=== PATIENT | male | born 1940 | race Caucasian/White ===

== ENCOUNTER 2017-11-01 10:52 | Day surgery (SDC) | payer MEDICARE ==
[2017-10-26 14:01] VITALS: BP 140/79
[~2017-11-01] VITALS: Ht 180.3 cm; Wt 85.1 kg
[~2017-11-01 10:52] MED LIST: ASPI-496 PO; FENO160T PO; LISI40TA PO; METF500T5 PO; METO-93 PO; OMEG1CAP6 PO
[2017-11-01] MEDS ORDERED: LACTATED RINGERS 1,000 ML IV SCH (11:13)
[2017-11-01] MEDS ORDERED: CHLORHEXIDINE 15 ML UDC MM ONE (12:30)
[2017-11-01] MEDS ORDERED: ACETAMINOPHEN 325 MG TABLET PO PRN (14:00)
[2017-11-01] MEDS ORDERED: FENTANYL PF 100 MCG/2ML IV PRN (14:00)
[2017-11-01] MEDS ORDERED: ONDANSETRON ODT 8 MG PO PRN (14:00)
[2017-11-01] MEDS ORDERED: ONDANSETRON 2MG/ML, 2ML IV PRN (14:00)
[2017-11-01] MEDS ORDERED: OXYcodone 5 MG/5 ML ORAL.SOL UDC PO PRN (14:00)
[2017-11-01] MEDS ORDERED: PROPOFOL 10 MG/ML, 20ML ONE (15:20)
== END 2017-11-01 16:50 ==
LOC: OUT 10:52
PROVIDERS: ATTEND Internal Medicine Gastroenterology
DX: C15.9 Malignant neoplasm of esophagus, unspecified (principal); E11.9 Type 2 diabetes mellitus without complications; E78.00 Pure hypercholesterolemia, unspecified; I10 Essential (primary) hypertension; I25.10 Atherosclerotic heart disease of native coronary artery without angina pectoris; E78.2 Mixed hyperlipidemia; J44.9 Chronic obstructive pulmonary disease, unspecified; F17.211 Nicotine dependence, cigarettes, in remission; Z98.890 Other specified postprocedural states; Z86.010 Personal history of colon polyps; Z95.1 Presence of aortocoronary bypass graft; Z72.89 Other problems related to lifestyle; Z87.891 Personal history of nicotine dependence; Z79.82 Long term (current) use of aspirin
CPT/HCPCS: 43238; 82962; 88172; 88173; 88305; J2704; J7120

== ENCOUNTER → 2018-02-25 | Outpatient (CLI) | payer MEDICARE ==
[~2018-02-25] MED LIST changes: +METF500T17 PO; -METF500T5 PO; +OMNIPAQUE 350 MG/ML, 100ML BOTTLE ONE
== END | disposition home or self-care (01) ==
LOC: CFH 09:08
PROVIDERS: ATTEND Internal Medicine Hematology & Oncology
DX: R59.0 Localized enlarged lymph nodes (principal); N28.1 Cyst of kidney, acquired; K57.30 Diverticulosis of large intestine without perforation or abscess without bleeding; C15.5 Malignant neoplasm of lower third of esophagus; Z92.21 Personal history of antineoplastic chemotherapy
CPT/HCPCS: 71260; 74177; Q9967

== ENCOUNTER → 2018-06-19 | Outpatient (CLI) | payer MEDICARE | END | disposition home or self-care (01) | LOC: CVU 09:28 | PROVIDERS: ATTEND Family Medicine | DX: C15.5 Malignant neoplasm of lower third of esophagus (principal); J43.2 Centrilobular emphysema; I77.811 Abdominal aortic ectasia; I77.4 Celiac artery compression syndrome; I72.3 Aneurysm of iliac artery; I70.8 Atherosclerosis of other arteries; I65.23 Occlusion and stenosis of bilateral carotid arteries; N28.1 Cyst of kidney, acquired; K57.30 Diverticulosis of large intestine without perforation or abscess without bleeding; E78.2 Mixed hyperlipidemia; E11.9 Type 2 diabetes mellitus without complications; I25.10 Atherosclerotic heart disease of native coronary artery without angina pectoris; I10 Essential (primary) hypertension; Z87.891 Personal history of nicotine dependence; Z95.1 Presence of aortocoronary bypass graft | CPT/HCPCS: 71260; 74177; 93880; 93978; Q9967 ==

== ENCOUNTER → 2019-08-05 | Outpatient (CLI) | payer MEDICARE ==
[~2019-08-05] MED LIST changes: -OMNIPAQUE 350 MG/ML, 100ML BOTTLE ONE
== END | disposition home or self-care (01) ==
LOC: CFH 09:58
PROVIDERS: ATTEND Nurse Practitioner Family
DX: R59.1 Generalized enlarged lymph nodes (principal); J43.9 Emphysema, unspecified; J84.10 Pulmonary fibrosis, unspecified
CPT/HCPCS: 71250

== ENCOUNTER → 2019-08-21 | Outpatient (CLI) | payer MEDICARE | END | disposition home or self-care (01) | LOC: PETCFH 08:30 | PROVIDERS: ATTEND Internal Medicine Hematology & Oncology | DX: C15.5 Malignant neoplasm of lower third of esophagus (principal); R91.1 Solitary pulmonary nodule | CPT/HCPCS: 78815; A9552 ==

== ENCOUNTER 2019-09-02 15:10 | Outpatient (CLI) | payer MEDICARE ==
[~2019-09-02 15:10] MED LIST changes: +ALBU90AE INH; +DIPH-423 PO; +FLUT9.9S NS; +MULT-257 PO; +ROSU20TA2 PO
== END 2019-09-02 23:59 | disposition home or self-care (01) ==
LOC: CFH 15:10
PROVIDERS: ATTEND Internal Medicine
DX: J43.2 Centrilobular emphysema (principal); R91.1 Solitary pulmonary nodule
CPT/HCPCS: 71250

== ENCOUNTER 2019-09-03 12:08 | Day surgery (SDC) | payer MEDICARE ==
[2019-09-02 11:26] LABS: ALANINE AMINOTRANSFERASE 43 U/L (12-78); ALBUMIN 3.3 g/dL (3.4-5.0); ANION GAP 7 mmol/L (5-15); CALCIUM 8.9 mg/dL (8.5-10.1); CHLORIDE 110 mmol/L (98-107); CREATININE 1.05 mg/dL (0.7-1.3)
[2019-09-02 11:28] LABS: ALKALINE PHOSPHATASE 82 U/L (45-117); BILIRUBIN,TOTAL 0.4 mg/dL (0.2-1.0); TOTAL PROTEIN 7.7 g/dL (6.4-8.2)
[~2019-09-03] VITALS: Ht 181.6 cm; Wt 83.1 kg
[~2019-09-03 12:08] MED LIST changes: +EPINEPHRINE SYRINGE 0.1 MG/ML, 10ML ONE
[2019-09-03] MEDS ORDERED: LACTATED RINGERS 1,000 ML IV SCH (12:33)
[2019-09-03 12:35] VITALS: BP 138/83
[2019-09-03] MEDS ORDERED: CHLORHEXIDINE 15 ML UDC ONE (12:42)
[2019-09-03] MEDS ORDERED: CHLORHEXIDINE 15 ML UDC MM ONE (13:00)
[2019-09-03] MEDS ORDERED: FENTANYL PF 100 MCG/2ML ONE (13:30)
[2019-09-03] MEDS ORDERED: SUCCINYLCHOLINE 20 MG/ML, 10ML ONE (13:32)
[2019-09-03] MEDS ORDERED: LIDOCAINE-MPF 2% ,5ML ONE (13:32)
[2019-09-03] MEDS ORDERED: ROCURONIUM 10MG/ML,5ML ONE (13:37)
[2019-09-03] MEDS ORDERED: PHENYLEPHRINE 10 MG/ML ONE (14:25)
[2019-09-03] MEDS ORDERED: EPHEDRINE 50 MG/ML, 1ML ONE (14:25)
[2019-09-03] MEDS ORDERED: SUGAMMADEX 200 MG/2 ML IVPush ONE (15:56)
== END 2019-09-03 17:40 | disposition home or self-care (01) ==
LOC: OUT 12:08
PROVIDERS: ATTEND Internal Medicine
DX: R91.8 Other nonspecific abnormal finding of lung field (principal); Z11.59 Encounter for screening for other viral diseases; R91.1 Solitary pulmonary nodule; I25.10 Atherosclerotic heart disease of native coronary artery without angina pectoris; E07.9 Disorder of thyroid, unspecified; R09.02 Hypoxemia; Z79.82 Long term (current) use of aspirin; Z79.84 Long term (current) use of oral hypoglycemic drugs; Z79.899 Other long term (current) drug therapy; Z85.01 Personal history of malignant neoplasm of esophagus; Z92.21 Personal history of antineoplastic chemotherapy; Z95.1 Presence of aortocoronary bypass graft
CPT/HCPCS: 31624; 31627; 31628; 31632; 36415; 71045; 80053; 82962; 88112; 88172; 88173; 88177; 88305; 93005; J0330; J2370; J3010; J7120; U0001; 31623; 31625; 76000

== ENCOUNTER → 2019-11-27 | Outpatient (CLI) | payer MEDICARE ==
[~2019-11-27] MED LIST changes: -EPINEPHRINE SYRINGE 0.1 MG/ML, 10ML ONE
== END | disposition home or self-care (01) ==
LOC: CFH 10:17
PROVIDERS: ATTEND Internal Medicine
DX: J43.2 Centrilobular emphysema (principal); R91.1 Solitary pulmonary nodule
CPT/HCPCS: 71250

== ENCOUNTER 2019-12-29 09:27 | Outpatient (CLI) | payer MEDICARE | END 2019-12-29 23:59 | disposition home or self-care (01) | LOC: RAD 09:27 | PROVIDERS: ATTEND Internal Medicine | DX: J92.9 Pleural plaque without asbestos (principal); J43.9 Emphysema, unspecified; J47.9 Bronchiectasis, uncomplicated; J98.4 Other disorders of lung | CPT/HCPCS: 36415; 71250; 80053; 87635; 93005 ==

== ENCOUNTER 2020-01-02 07:54 | Day surgery (SDC) | payer MEDICARE ==
[~2020-01-02] VITALS: Ht 180.3 cm; Wt 82.4 kg
[2020-01-02] MEDS ORDERED: CHLORHEXIDINE 15 ML UDC MM STA (08:31)
[2020-01-02] MEDS ORDERED: LACTATED RINGERS 1,000 ML IV ONE (08:31)
[2020-01-02 08:32] VITALS: BP 116/76
[2020-01-02] MEDS ORDERED: FENTANYL PF 100 MCG/2ML IV PRN (09:30)
[2020-01-02] MEDS ORDERED: PROMETHAZINE 25 MG/ML, 1ML IVPush PRN (09:30)
[2020-01-02] MEDS ORDERED: LABETALOL 5MG/ML, 20ML IV PRN (09:30)
[2020-01-02] MEDS ORDERED: hydrALAzine 20 MG/ML, 1ML IV PRN (09:30)
[2020-01-02] MEDS ORDERED: ONDANSETRON 2MG/ML, 2ML IVPush PRN (09:30)
[2020-01-02] MEDS ORDERED: HYDROcodone/APAP 7.5-325MG/15ML UDC PO PRN (09:30)
[2020-01-02] MEDS ORDERED: morphine SULFATE 10 MG/ML, 1ML IVPush PRN (09:30)
[2020-01-02] MEDS ORDERED: FENTANYL PF 250 MCG/5ML ONE (09:52)
[2020-01-02] MEDS ORDERED: DEXAMETHASONE 4 MG/ML, 1ML ONE (10:40)
[2020-01-02] MEDS ORDERED: ONDANSETRON 2MG/ML, 2ML ONE (10:44)
[2020-01-02] MEDS ORDERED: SUCCINYLCHOLINE 20 MG/ML, 10ML ONE (10:44)
[2020-01-02] MEDS ORDERED: ROCURONIUM 10 MG/ML,10ML ONE (10:44)
[2020-01-02] MEDS ORDERED: PROPOFOL 10 MG/ML, 20ML ONE (10:44)
[2020-01-02] MEDS ORDERED: EPHEDRINE 50 MG/ML, 1ML ONE (10:56)
[2020-01-02] MEDS ORDERED: PHENYLEPHRINE 10 MG/ML ONE (11:18)
== END 2020-01-02 13:40 | disposition home or self-care (01) ==
LOC: OUT 07:54
PROVIDERS: ATTEND Internal Medicine
DX: R59.0 Localized enlarged lymph nodes (principal); R91.8 Other nonspecific abnormal finding of lung field; C77.1 Secondary and unspecified malignant neoplasm of intrathoracic lymph nodes; C15.9 Malignant neoplasm of esophagus, unspecified; J44.9 Chronic obstructive pulmonary disease, unspecified; E11.22 Type 2 diabetes mellitus with diabetic chronic kidney disease; I12.9 Hypertensive chronic kidney disease with stage 1 through stage 4 chronic kidney disease, or unspecified chronic kidney disease; N18.30 Chronic kidney disease, stage 3 unspecified; E78.2 Mixed hyperlipidemia; Z79.82 Long term (current) use of aspirin; Z79.84 Long term (current) use of oral hypoglycemic drugs; Z79.899 Other long term (current) drug therapy; Z95.1 Presence of aortocoronary bypass graft; Z99.81 Dependence on supplemental oxygen
CPT/HCPCS: 31623; 31624; 31627; 31628; 31652; 71045; 82962; 88112; 88172; 88173; 88177; 88305; 88341; 88342; J0330; J1100; J2370; J2405; J2704; J3010; 31629; 76000; 88333